=== PATIENT | male | born 1945 | race Caucasian/White ===

== ENCOUNTER 2021-10-28 05:31 | Inpatient (IN) | payer MEDICARE, OTHER ==
[2021-10-15 14:51] LABS: BASOPHILS % (AUTO) 0.7 % (0-1); EOSINOPHILS # (AUTO) 0.1 X10'3 (0-0.9); EOSINOPHILS % (AUTO) 2.1 % (0-6); LYMPHOCYTES # (AUTO) 1.2 X10'3 (1.1-4.8); LYMPHOCYTES % (AUTO) 24.8 % (21-51); MEAN CORPUSCULAR HEMOGLOBIN 32.1 PG (27.0-31.0); MEAN CORPUSCULAR HGB CONC 34.1 g/dL (33.0-36.5); MEAN PLATELET VOLUME 8.7 FL (7.4-10.4); MONOCYTES # (AUTO) 0.5 X10'3 (0-0.9); MONOCYTES % (AUTO) 9.9 % (2-12); NEUTROPHILS % (AUTO) 62.5 % (42-75); PRE OP HEMATOCRIT 40.3 % (42.0-52.0); PRE OP HEMOGLOBIN 13.7 g/dL (14.0-17.9); PRE OP PLATELET COUNT 136 X10'3 (140-440); RED BLOOD COUNT 4.29 X10'6 (4.70-6.10); RED CELL DISTRIBUTION WIDTH 14.3 % (11.5-14.5)
[2021-10-15 15:36] LABS: ALBUMIN 3.5 G/DL (3.4-5.0); ALBUMIN/GLOBULIN RATIO 1.3 (1.1-1.5); ALKALINE PHOSPHATASE 98 IU/L (46-116); BLOOD UREA NITROGEN 21 MG/DL (7-18); BUN/CREATININE RATIO 24.7 (5.4-32.0); CALCIUM 8.5 MG/DL (8.5-10.1); CHLORIDE 108 MMOL/L (99-107); CREATININE 0.85 MG/DL (0.60-1.10); PRE OP ALT 22 U/L (30-65); PRE OP ANION GAP 10 (8-16); PRE OP AST 14 U/L (10-37); PRE OP BILIRUB, TOTAL 0.4 MG/DL (0.0-1.0); PRE OP GLUCOSE 112 MG/DL (70-104); PRE OP POTASSIUM 4.6 MMOL/L (3.4-5.1); PRE OP SODIUM 144 MMOL/L (135-145); TOTAL CARBON DIOXIDE 25.9 MMOL/L (24-32); TOTAL PROTEIN 6.2 G/DL (6.4-8.2); eGFR 87 ML/MIN
[2021-10-28] VITALS (34 sets, daily range): BP systolic 97–145; BP diastolic 52–95
[~2021-10-28] VITALS: Ht 182.9 cm; Wt 91.4 kg
[~2021-10-28 05:31] MED LIST: DOCU-21 PO; MULT-1085 PO; OCUVITE PO; SODI650T29 PO; cefazolin/dext.iso 2gm/50ml IV ONE; famotidine 20mg tablet PO ONE; ringers solution, lacted 1,000 ML IV SCH
[2021-10-28] MEDS ORDERED: LIDOcaine 1% 30ml preserv. free vial ONE (06:39)
[2021-10-28] MEDS ORDERED: BUPIVAcaine 0.5% inj/PF 30 ML ONE (06:40)
[2021-10-28] MEDS ORDERED: midazolam 1 mg/ML 2ml injection ONE (07:28)
[2021-10-28] MEDS ORDERED: fentaNYL /PF 50mcg/ml 5ml ampule ONE (07:28)
[2021-10-28] MEDS ORDERED: LIDOcaine 2% (20mg/ml) 5ml vial ONE ×2 (07:30→08:04)
[2021-10-28] MEDS ORDERED: propofol inj 20 ML IV ONE (07:30)
[2021-10-28] MEDS ORDERED: sevoflurane 250ml liquid IH ONE (07:42)
[2021-10-28] MEDS ORDERED: rocuronium 10mg/ml inj IV ONE (08:03)
[2021-10-28] MEDS ORDERED: dexamethasone sod phosphate 4mg/ml inj. ONE (08:04)
[2021-10-28] MEDS ORDERED: BUPIVAcaine 0.5% inj/PF 30 ml vial IJ ONE (08:39)
[2021-10-28] MEDS ORDERED: proCHLORperazine 10 MG/2 ml inj IV PRN (09:05)
[2021-10-28] MEDS ORDERED: acetaminophen 1,000mg/100ml IV 100 ML IV ONE (09:05)
[2021-10-28] MEDS ORDERED: ringers solution, lacted 1,000 ML IV SCH (09:05)
[2021-10-28] MEDS ORDERED: meperidine/PF 25mg/ml syringe IV PRN ×3 (09:05)
[2021-10-28] MEDS ORDERED: meperidine/PF 25mg/ml syringe ONE (10:26)
--- NOTE | 2021-10-28 11:44 | NUR ---
Received from OR via HOSPITAL BED , accompanied by Anesthesiologist DR JENNINGS and report given by Anesthesiolgist. PT PRESENT WITH 20G RIGHT WRIST,ABD DRESSING CLEAN DRY AND INTACT. VSS. Addendum: 10/28/21 at 1200 by Hortencia Wilson RN, RN Amended: Links added.
[2021-10-28] MEDS ORDERED: HYDROcodone/acetaminophen 5mg/325mg tablet PO PRN (11:50)
[2021-10-28] MEDS ORDERED: Potassium Cl inj 20 MEQ in ringers solution, lacted 1,000 ML IV SCH (11:50)
[2021-10-28] MEDS ORDERED: ondansetron/PF 4mg/2ml inj IV PRN (11:50)
[2021-10-28] MEDS ORDERED: HYDROcodone/acetaminophen 10/325mg tab PO PRN (11:50)
[2021-10-28] MEDS: Potassium Cl inj 20 MEQ in dextrose 5%-water 1,000 ML IV SCH ×2 (13:04→20:06)
--- NOTE | 2021-10-28 15:24 | NUR ---
Report called to receiving nurse ZULEYKA CHAVEZ RN. Transferred via HOSPITAL BED TO ROOM 357B. BED IN LOW LOCKED POSITION WITH CALL LIGHT IN REACH.ONE PT Belongings BAG SENT WITH PT,INCLUDING GLASSES AND CELL PHONE. SPECIal Issues communicated to receiving nurse. Addendum: 10/28/21 at 1609 by Hortencia Wilson RN RN Amended: Links added.
--- NOTE | 2021-10-28 15:32 | NUR ---
Recieved report from recovery, pt arrived stable, urostomy draining, band aids over lap sites, iv fluids runnig as ordered. No reports of discomfort
--- NOTE | 2021-10-28 18:40 | NUR ---
Patient in room [facility]. I have received report from CASIE HERNANDEZ and had the opportunity to ask questions and assume patient care.
[2021-10-28] MEDS ORDERED: magnesium hydroxide 30ml (MOM) UD suspension PO PRN (21:00)
[2021-10-28] MEDS ORDERED: simethicone 80mg chew tab PO PRN (21:40)
[2021-10-29 04:00] VITALS: BP 121/66
[2021-10-29] MEDS: Potassium Cl inj 20 MEQ in dextrose 5%-water 1,000 ML IV SCH (04:44)
--- NOTE | 2021-10-29 06:17 | NUR ---
Patient in room [facility]. I have received report from CASIE HERNANDEZ and had the opportunity to ask questions and assume patient care.
[2021-10-29 07:00] VITALS: BP 106/65
[2021-10-29 07:18] LABS: BASOPHILS % (AUTO) 0.5 % (0-1); EOSINOPHILS # (AUTO) 0.1 X10'3 (0-0.9); EOSINOPHILS % (AUTO) 2.3 % (0-6); HEMATOCRIT 39.7 % (42.0-52.0); HEMOGLOBIN 13.4 g/dl (14.0-17.9); LYMPHOCYTES % (AUTO) 15.3 % (21-51); MEAN CORPUSCULAR HEMOGLOBIN 31.3 PG (27.0-31.0); MEAN CORPUSCULAR HGB CONC 33.7 g/dL (33.0-36.5); MEAN PLATELET VOLUME 9.1 FL (7.4-10.4); MONOCYTES # (AUTO) 0.7 X10'3 (0-0.9); MONOCYTES % (AUTO) 10.3 % (2-12); NEUTROPHILS # (AUTO) 4.6 X10'3 (1.8-7.7); NEUTROPHILS % (AUTO) 71.6 % (42-75); PLATELET COUNT 111 X10'3 (140-440); RED BLOOD COUNT 4.27 X10'6 (4.70-6.10); RED CELL DISTRIBUTION WIDTH 14.1 % (11.5-14.5); WHITE BLOOD COUNT 6.4 X10'3 (4.5-11.0)
[2021-10-29 07:42] LABS: ALBUMIN 2.9 G/DL (3.4-5.0); ANION GAP 7 (8-16); BLOOD UREA NITROGEN 12 MG/DL (7-18); BUN/CREATININE RATIO 17.1 (5.4-32.0); CALCIUM 8.2 MG/DL (8.5-10.1); CHLORIDE 108 MMOL/L (99-107); GLUCOSE 118 MG/DL (70-104); POTASSIUM 4.1 MMOL/L (3.5-5.1); SODIUM 140 MMOL/L (135-145); TOTAL CARBON DIOXIDE 25.2 MMOL/L (24-32); eGFR > 90 ML/MIN
[2021-10-29] MEDS ORDERED: SODIUM BICARBONATE PO SCH (08:00)
[2021-10-29 11:00] VITALS: BP 111/63
[2021-10-29 11:38] VITALS: BP 111/63
== END 2021-10-29 15:42 | disposition home or self-care (01) | DRG 351 ==
LOC: PAS 05:31 → SUR 3N 11:52 → PAS 16:40 → SUR 3N 16:40
PROVIDERS: ADMIT Surgery; ATTEND Surgery
PROC: 8E0W4CZ Robotic Assisted Procedure of Trunk Region, Percutaneous Endoscopic Approach (ICD-10-PCS; 2021-10-28)
PROC: 0YQ64ZZ Repair Left Inguinal Region, Percutaneous Endoscopic Approach (ICD-10-PCS; principal; 2021-10-28 07:42)
DX: K40.30 Unilateral inguinal hernia, with obstruction, without gangrene, not specified as recurrent (principal); K56.7 Ileus, unspecified; K21.9 Gastro-esophageal reflux disease without esophagitis; Z85.46 Personal history of malignant neoplasm of prostate; Z85.51 Personal history of malignant neoplasm of bladder; Z86.16 Personal history of COVID-19; Z79.899 Other long term (current) drug therapy
CPT/HCPCS: 36415; 80048; 80053; 82948; 85025; 93005; 93306; A4215; A4618; C1781; G0378; J0131; J0690; J1100; J2175; J2250; J2704; J3010; J3480; J3490; J7070; J7120; S0020; U0003; U0005